=== PATIENT | male | born 1965 | race African-American/Black ===

== ENCOUNTER 2019-07-28 13:14 | Emergency (ER) | payer SELFPAY ==
--- NOTE | 2019-07-28 15:27 | EDPHYS ---
Physician Documentation [facility] Name: Ladarius Moreira Age: 54 yrs Sex: Male : 1965 Arrival Date: 07/28/2019 Time: 13:17 Bed 12 Private MD: ED Physician Rudolph Larson HPI: 07/28 15:23 This 54 yrs old Black Male presents to ER via Ambulatory with complaints of Cough. la1 15:23 The patient or guardian reports cough, flu symptoms. Onset: The symptoms/episode la1 began/occurred 5 day(s) ago. Severity of symptoms: At their worst the symptoms were moderate. Modifying factors: The symptoms are alleviated by nothing, the symptoms are aggravated by nothing. Associated signs and symptoms: Pertinent positives: chills. The patient has not experienced similar symptoms in the past. Pt with cough for the last 5 days, seems to be getting worse. Chills at home. Historical: - Allergies: 14:00 No Known Allergies; ca1 - Home Meds: 14:00 None [Active]; ca1 - PMHx: 14:00 None; ca1 - PSHx: 14:00 None; ca1 - Immunization history:: Adult Immunizations not up to date. - Coronavirus screen:: The patient has NOT traveled to [place], [place], or [place] in the past 14 days. The patient has NOT had contact with known/suspected case of Coronavirus?. - Social history:: Smoking status: Patient denies any tobacco usage or history of. - Ebola Screening: : Patient negative for fever greater than or equal to 101.5 degrees Fahrenheit, and additional compatible Ebola Virus Disease symptoms Patient denies exposure to infectious person Patient denies travel to an Ebola-affected area in the 21 days before illness onset No symptoms or risks identified at this time. ROS: 15:24 Constitutional: + for chills Eyes: Negative for injury, pain, redness, and discharge, la1 ENT: Negative for injury, pain, and discharge, Neck: Negative for injury, pain, and swelling, Cardiovascular: Negative for chest pain, palpitations, and edema, Respiratory: + cough Abdomen/GI: Negative for abdominal pain, nausea, vomiting, diarrhea, and constipation, Back: Negative for injury and pain, MS/Extremity: Negative for injury and deformity, Neuro: Negative for headache, weakness, numbness, tingling, and seizure, Allergy/Immunology: Negative for hives, rash, and allergies, Endocrine: Negative for neck swelling, polydipsia, polyuria, polyphagia, and marked weight changes. Exam: 15:25 Constitutional: This is a well developed, well nourished patient who is awake, alert, la1 and in no acute distress. Head/Face: Normocephalic, atraumatic. ENT: Nares patent. No nasal discharge, no septal abnormalities noted. Tympanic membranes are normal and external auditory canals are clear. Oropharynx with no redness, swelling, or masses, exudates, or evidence of obstruction, uvula midline. Mucous membranes moist. Neck: Trachea midline,no cervical lymphadenopathy. Supple, full range of motion without nuchal rigidity, or vertebral point tenderness. No Meningismus. Chest/axilla: Normal chest wall appearance and motion. Nontender with no deformity. No lesions are appreciated. Cardiovascular: Regular rate and rhythm with a normal S1 and S2. No gallops, murmurs, or rubs. Normal PMI, no JVD. No pulse deficits. 15:25 Abdomen/GI: Soft, non-tender, with normal bowel sounds. 15:25 Respiratory: the patient does not display signs of respiratory distress, Respirations: labored breathing, that is mild, Breath sounds: rhonchi, that are mild, are scattered, Respiratory rate: 19 Vital Signs: 14:00 BP 112 / 83; Pulse 87; Resp 19 S; Temp 98.5(O); Pulse Ox 95% on R/A; Weight 102.06 kg ca1 (R); Height 5 ft. 7 in. (170.18 cm) (R); 14:00 Body Mass Index 35.24 (102.06 kg, 170.18 cm) ca1 MDM: 15:09 Patient medically screened. la1 15:25 Data reviewed: vital signs, nurses notes, lab test result(s), I have discussed the la1 patient's presentation/case with the attending Emergency Department Physician; and as a result, I will discharge patient. Data interpreted: Pulse oximetry: on room air is 95 %. Interpretation: normal. Counseling: I had a detailed discussion with the patient and/or guardian regarding: the historical points, exam findings, and any diagnostic results supporting the discharge/admit diagnosis, lab results, the need for outpatient follow up, a family practitioner, to return to the emergency department if symptoms worsen or persist or if there are any questions or concerns that arise at home. Special discussion: Based on the history and exam findings, there is no indication for further emergent testing or inpatient evaluation. I discussed with the patient/guardian the need to see the primary care provider for further evaluation of the symptoms. ED course: Concerned for early pneumonia based on clinical exam and history, will place on Z-pack. 07/28 14:01 Order name: Flu ca1 07/28 14:01 Order name: Strep ca1 07/28 14:01 Order name: Influenza Screen (A EDMS 07/28 14:35 Order name: Throat Culture EDMS Administered Medications: No medications were administered Disposition: 16:46 Co-signature as Attending Physician, Rudolph Larson MD I agree with the assessment and michelle plan of care. Disposition: 07/28/19 15:27 Discharged to Home. Impression: Cough, Acute bronchitis. - Condition is Stable. - Discharge Instructions: Acute Bronchitis, Adult, Cough, Adult. - Prescriptions for Tessalon Perles 100 mg Oral Capsule - take 1 capsule by ORAL route every 8 hours As needed; 15 capsule. Medrol (Karan) 4 mg Oral Tablets, Dose Pack - take 1 tablet by ORAL route as directed - follow package instructions; 1 packet. Albuterol Sulfate 90 mcg/actuation - inhale 1-2 puff by INHALATION route every 4-6 hours; 1 Inhaler. Zithromax 500 mg Oral Tablet - take 1 tablet by ORAL route once daily for 5 days; 5 tablet. - Medication Reconciliation Form, Thank You Letter, Antibiotic Education form. - Follow up: Private Physician; When: 2 - 3 days; Reason: Recheck today's complaints, Re-evaluation by your physician. - Problem is new. - Symptoms are unchanged. Signatures: Dispatcher [employer] [facility] Rudolph Larson MD MD cha Williams, Irene RN RN iw Kenneth Smith, CREDIT RISK ASSOCIATE-C CREDIT RISK ASSOCIATE-Cla1 Shira Shepard RN RN ca1 Corrections: (The following items were deleted from the chart) 15:48 15:27 07/28/2019 15:27 Discharged to Home. Impression: Cough; Acute bronchitis. iw Condition is Stable. Forms are Medication Reconciliation Form, Thank You Letter, Antibiotic Education, Prescription Opioid Use. Follow up: Private Physician; When: 2 - 3 days; Reason: Recheck today's complaints, Re-evaluation by your physician. Problem is new. Symptoms are unchanged. la1
--- NOTE | 2019-07-28 15:27 | ER ---
Nurse's Notes [facility] Name: Ladarius Moreira Age: 54 yrs Sex: Male : 1965 Arrival Date: 07/28/2019 Time: 13:17 Bed 12 Private MD: Diagnosis: Cough;Acute bronchitis Presentation: 07/28 13:58 Presenting complaint: Patient states: Cough and congestion x 5 days. Fever 2 days ago. ca1 Denies, N/V/Diarrhea. Transition of care: patient was not received from another setting of care. Onset of symptoms was July 28, 2019. Risk Assessment: Do you want to hurt yourself or someone else? Patient reports no desire to harm self or others. Initial Sepsis Screen: Does the patient meet any 2 criteria? No. Patient's initial sepsis screen is negative. Does the patient have a suspected source of infection? No. Patient's initial sepsis screen is negative. Care prior to arrival: None. 13:58 Method Of Arrival: Ambulatory ca1 13:58 Acuity: GUSTAVO 4 ca1 Triage Assessment: 15:47 General: Appears in no apparent distress. Behavior is calm, cooperative. iw Historical: - Allergies: 14:00 No Known Allergies; ca1 - Home Meds: 14:00 None [Active]; ca1 - PMHx: 14:00 None; ca1 - PSHx: 14:00 None; ca1 - Immunization history:: Adult Immunizations not up to date. - Coronavirus screen:: The patient has NOT traveled to [place], [place], or [place] in the past 14 days. The patient has NOT had contact with known/suspected case of Coronavirus?. - Social history:: Smoking status: Patient denies any tobacco usage or history of. - Ebola Screening: : Patient negative for fever greater than or equal to 101.5 degrees Fahrenheit, and additional compatible Ebola Virus Disease symptoms Patient denies exposure to infectious person Patient denies travel to an Ebola-affected area in the 21 days before illness onset No symptoms or risks identified at this time. Screenin:00 Abuse screen: Denies threats or abuse. Denies injuries from another. Nutritional iw screening: No deficits noted. Tuberculosis screening: No symptoms or risk factors identified. Fall Risk None identified. Assessment: 15:00 General: Appears in no apparent distress. Behavior is calm, cooperative. Pain: Denies iw pain. Neuro: Level of Consciousness is awake, alert, obeys commands, Oriented to person, place, time, situation, Moves all extremities. Full function. Cardiovascular: Patient's skin is warm and dry. Respiratory: Reports cough that is. Derm: Skin is intact, is healthy with good turgor. Musculoskeletal: Range of motion: intact in all extremities. Vital Signs: 14:00 BP 112 / 83; Pulse 87; Resp 19 S; Temp 98.5(O); Pulse Ox 95% on R/A; Weight 102.06 kg ca1 (R); Height 5 ft. 7 in. (170.18 cm) (R); 14:00 Body Mass Index 35.24 (102.06 kg, 170.18 cm) ca1 ED Course: 13:17 Patient arrived in ED. as 13:59 Triage completed. ca1 14:00 Arm band placed on right wrist. ca1 14:46 Kenneth Smith FNP-C [facility]. la1 14:46 Rudolph Larson MD is Attending Physician. la1 15:00 Patient has correct armband on for positive identification. iw 15:07 Denise Song, RN is Primary Nurse. iw 15:47 No provider procedures requiring assistance completed. Patient did not have IV access iw during this emergency room visit. Administered Medications: No medications were administered Outcome: 15:27 Discharge ordered by . la1 15:47 Discharged to home ambulatory, with family. iw 15:47 Condition: good 15:47 Discharge instructions given to patient, family, Instructed on discharge instructions, follow up and referral plans. medication usage, Demonstrated understanding of instructions, follow-up care, medications, Prescriptions given X 2. 15:48 Patient left the ED. iw Signatures: Cinthia Menard as Denise Song, RN RN iw Kenneth Smith FNP-C FNP-Cla1 Shira Shepard RN RN ca1
[2019-07-28 16:14] VITALS: BP 112/83; TEMP 98.5; O2SAT 95
== END 2019-07-28 15:48 | disposition home or self-care (01) ==
LOC: ER 13:14
DX: J20.9 Acute bronchitis, unspecified (principal)
CPT/HCPCS: 87070; 87081; 87804; 99282